=== PATIENT | female | born 1940 | race Two or more races ===

== ENCOUNTER 2023-04-24 08:19 | Emergency (ER) | payer OTHER, MEDICAID ==
[~2023-04-24] VITALS: Ht 162.6 cm; Wt 82.7 kg
[2023-04-24 08:58] LABS: Urine Bacteria FEW /hpf (None Seen); Urine Blood Negative /uL (Negative); Urine Specific Gravity 1.017 (1.001-1.035); Urine WBC 7 /hpf (0 - 5)
[2023-04-24 09:24] LABS: Albumin 3.4 g/dL (3.4-5.0); Basophils # (auto) 0.1 10 ^3/uL (0-0.2); Basophils % (auto) 1.1 % (0.0-2.0); Calcium 8.7 mg/dL (8.5-10.1); Eosinophils # (auto) 0.2 10 ^3/uL (0-0.8); Eosinophils % (auto) 2.4 % (0.0-7.0); Hematocrit 40.1 % (36.0-46.0); Hemoglobin 12.9 g/dL (12.2-16.2); Lymphocytes # (auto) 2.1 10 ^3/uL (0.4-5.4); Lymphocytes % (auto) 22.5 % (10.0-50.0); Mean Corpuscular Hgb Conc. 32.1 g/dL (32.0-36.0); Mean Corpuscular Volume 84.1 fL (80.0-100.0); Monocytes # (auto) 0.6 10 ^3/uL (0-1.3); Monocytes % (auto) 6.4 % (0.0-12.0); Neutrophils # (auto) 6.4 10 ^3/uL (1.6-8.6); Neutrophils % (auto) 67.6 % (37.0-80.0); Nucleated Red Blood Cells % 0.3 %; Potassium 4.4 mmol/L (3.5-5.1); Red Blood Cells 4.77 10^6/uL (4.0-5.20); Red Cell Distribution Width 16.1 % (11.8-14.3); White Blood Cell 9.4 10^3/uL (4.4-10.8)
[2023-04-24 09:28] LABS: BUN/Creatinine Ratio 11.3 (10.0-20.0); Bilirubin, Total 0.3 mg/dL (0.2-1.0); Total Protein 7.8 g/dL (6.4-8.2)
[2023-04-24] MEDS ORDERED: MORPHINE SULFATE INJ 2 MG/ml SYRG IV ONE (09:45)
[2023-04-24] MEDS ORDERED: ONDANSETRON HCL 4 MG/2 ML VIAL IV ONE (09:45)
[2023-04-24 09:46] VITALS: PULSE 72; RESP 18
[2023-04-24] MEDS ORDERED: cefTRIAXone 1GM/50ML D5W 50 ML IV ONE (12:15)
[2023-04-24] MEDS ORDERED: NITR-87 PO (14:25)
[2023-04-24] MEDS ORDERED: CARI250T PO (14:25)
[2023-04-24 15:15] VITALS: BP 146/62; PULSE 68; RESP 19; TEMP 98.6; O2SAT 94
== END 2023-04-24 15:18 | disposition home or self-care (01) ==
LOC: ER 08:19
DX: N28.89 Other specified disorders of kidney and ureter (principal); N39.0 Urinary tract infection, site not specified; I10 Essential (primary) hypertension; E11.9 Type 2 diabetes mellitus without complications; Z79.899 Other long term (current) drug therapy; Z88.8 Allergy status to other drugs, medicaments and biological substances
CPT/HCPCS: 36415; 74176; 80053; 81001; 82962; 85025; 93005; 96365; 96375; 99285; J0696; J2270; J2405

== ENCOUNTER 2024-07-30 13:10 | Inpatient (IN) | payer OTHER, MEDICAID ==
[~2024-07-30] VITALS: Ht 170.2 cm; Wt 85.5 kg
[~2024-07-30 13:10] MED LIST: CARI250T PO; NITR-87 PO
[2024-07-30 14:26] LABS: Basophils # (auto) 0.1 10 ^3/uL (0-0.2); Basophils % (auto) 0.7 % (0.0-2.0); Eosinophils # (auto) 0.2 10 ^3/uL (0-0.8); Eosinophils % (auto) 2.6 % (0.0-7.0); Hematocrit 39.4 % (36.0-46.0); Hemoglobin 12.6 g/dL (12.2-16.2); Lymphocytes # (auto) 2.7 10 ^3/uL (0.4-5.4); Lymphocytes % (auto) 28.4 % (10.0-50.0); Mean Corpuscular Hemoglobin 27.3 pg (28.0-32.0); Mean Corpuscular Hgb Conc. 32.1 g/dL (32.0-36.0); Monocytes # (auto) 0.7 10 ^3/uL (0-1.3); Monocytes % (auto) 7.2 % (0.0-12.0); Neutrophils # (auto) 5.7 10 ^3/uL (1.6-8.6); Neutrophils % (auto) 61.1 % (37.0-80.0); Nucleated Red Blood Cells % 0.1 %; Platelet Count (auto) 432 10^3/uL (140-450); Red Blood Cells 4.63 10^6/uL (4.0-5.20); Red Cell Distribution Width 15.9 % (11.8-14.3); White Blood Cell 9.4 10^3/uL (4.4-10.8)
[2024-07-30] MEDS: HYDROcodone-ACET 5/325MG TAB PO ONE (14:39)
[2024-07-30 14:40] LABS: Chloride 106 mmol/L (98-107); Potassium 4.6 mmol/L (3.5-5.1); Sodium 137 mmol/L (136-145)
[2024-07-30] MEDS: methylPREDNISolone SOD SUCC 125 MG/2 ML VL IM ONE (14:40)
[2024-07-30 14:41] LABS: Anion Gap 8 (5-15); Carbon Dioxide 23 mmol/L (20-31)
[2024-07-30 14:42] LABS: Calcium 10.1 mg/dL (8.7-10.4)
[2024-07-30 14:46] LABS: Glucose 123 mg/dL (74-106)
[2024-07-30 14:47] LABS: BUN/Creatinine Ratio 9.8 (10.0-20.0); Blood Urea Nitrogen 13 mg/dL (9-23)
[2024-07-30 15:03] LABS: Urine Bacteria None Seen /hpf (None Seen)
[2024-07-30 15:24] LABS: Urine Blood Negative /uL (Negative); Urine Clarity Clear (Clear); Urine Color Light-Yellow (Yellow); Urine Protein, UAD Negative (Negative); Urine Urobilinogen Normal (Negative); Urine WBC 1 /hpf (0 - 5)
[2024-07-30 17:15] VITALS: BP 93/68; PULSE 76; RESP 18; TEMP 97.8; O2SAT 94
[2024-07-30] MEDS ORDERED: GLIP10TA9 PO (17:25)
[2024-07-30] MEDS ORDERED: ALEN70TA74 PO (17:25)
[2024-07-30] MEDS ORDERED: MONT-8 PO (17:25)
[2024-07-30] MEDS ORDERED: LOSA-534 PO (17:25)
[2024-07-30] MEDS ORDERED: BUSP10TA31 PO (17:25)
[2024-07-30] MEDS ORDERED: SPIR25TA8 PO (17:25)
[2024-07-30] MEDS ORDERED: DOCU-265 PO (17:25)
[2024-07-30] MEDS ORDERED: ATEN50TA PO (17:25)
[2024-07-30] MEDS ORDERED: SIMV20TA20 PO (17:25)
[2024-07-30] MEDS ORDERED: SEMA1INJ2 SC (17:25)
[2024-07-30] MEDS ORDERED: GABA-339 PO (17:25)
[2024-07-30] MEDS ORDERED: SITA100T7 PO (17:26)
[2024-07-30] MEDS ORDERED: PANT1INJ3 PO (17:27)
[2024-07-30] MEDS ORDERED: DORZ2SOL18 EACHEYE (17:28)
[2024-07-30] MEDS ORDERED: DICY20TA PO (17:29)
[2024-07-30] MEDS ORDERED: ACETAMINOPHEN 325 MG TAB PO PRN (18:45)
[2024-07-30] MEDS ORDERED: NITROGLYCERIN 0.4 MG SL TAB SL PRN (18:45)
[2024-07-30] MEDS ORDERED: ONDANSETRON HCL 4 MG/2 ML VIAL IV PRN (18:45)
[2024-07-30] MEDS ORDERED: HYDROcodone-ACET 5/325MG TAB PO PRN (18:45)
[2024-07-30] MEDS ORDERED: MORPHINE SULFATE INJ 2 MG/ml SYRG IV PRN ×2 (18:45)
[2024-07-30 20:12] VITALS: RESP 16
[2024-07-30] MEDS: hydrALAZINE HCL 20 MG/ML VL IV PRN (21:16)
[2024-07-30 21:40] VITALS: BP 178/65; PULSE 89; RESP 20; TEMP 98.3; O2SAT 93
[2024-07-30] MEDS: ATENOLOL 25 MG TAB PO SCH (22:55)
[2024-07-30] MEDS: SODIUM CHLORIDE 0.9% 1,000 ML IV SCH (22:56)
[2024-07-31] VITALS (7 sets, daily range): BP systolic 112–177; BP diastolic 55–82; PULSE 76–90; RESP 18–20; TEMP 36.8; O2SAT 93–96
[2024-07-31] MEDS: ENOXAPARIN SOD 40 MG/0.4 ML SYRINGE SC SCH (08:49)
[2024-07-31] MEDS: ASPirin 81 mg TAB PO ONE (12:38)
[2024-07-31] MEDS: busPIRone HCL 10 MG TAB PO PRN (12:40)
[2024-07-31] MEDS: cloNIDine HCL 0.1 MG TAB PO PRN (13:07)
[2024-07-31] MEDS ORDERED: METH4PAK PO (15:14)
[2024-08-01] MEDS ORDERED: ASPirin 81 mg TAB PO SCH (10:00)
[2024-08-07] MEDS ORDERED: OZEMPIC 2 MG SCH (12:30)
== END 2024-07-31 18:40 | disposition home health service (06) | DRG 552 ==
LOC: ER 13:10 → TELE 18:45 → TELE-WESTW 21:30
PROVIDERS: ADMIT Internal Medicine; ATTEND Internal Medicine
DX: M48.061 Spinal stenosis, lumbar region without neurogenic claudication (principal); M43.17 Spondylolisthesis, lumbosacral region; M54.16 Radiculopathy, lumbar region; E78.5 Hyperlipidemia, unspecified; N18.32 Chronic kidney disease, stage 3b; E11.22 Type 2 diabetes mellitus with diabetic chronic kidney disease; I12.9 Hypertensive chronic kidney disease with stage 1 through stage 4 chronic kidney disease, or unspecified chronic kidney disease; G89.29 Other chronic pain; M48.02 Spinal stenosis, cervical region; Z79.84 Long term (current) use of oral hypoglycemic drugs; Z87.891 Personal history of nicotine dependence
CPT/HCPCS: 36415; 72131; 72148; 80048; 81001; 85025; 96372; 96374; 97163; G0378

== ENCOUNTER 2025-06-21 17:11 | Emergency (ER) | payer OTHER, MEDICAID ==
[~2025-06-21] VITALS: Ht 162.6 cm; Wt 81.3 kg
[~2025-06-21 17:11] MED LIST changes: +ALEN70TA74 PO; +ATEN50TA PO; +BUSP10TA31 PO; +DICY20TA PO; +DOCU-265 PO; +DORZ2SOL18 EACHEYE; +GABA-339 PO; +GLIP10TA9 PO; +LOSA-534 PO; +METH4PAK PO; +MONT-8 PO; -NITR-87 PO; +PANT1INJ3 PO; +SEMA1INJ2 SC; +SIMV20TA20 PO; +SITA100T7 PO; +SPIR25TA8 PO
[2025-06-21 17:12] VITALS: BP 153/88; PULSE 83; RESP 18; TEMP 98.2; O2SAT 96
[2025-06-21] MEDS ORDERED: OME20T PO (17:40)
--- NOTE | 2025-06-21 17:41 | ED.PDOC ---
GI ASSESSMENT HPI Comments This patient is a pleasant but morbidly obese 84-year-old female who arrives to the ED today with a request for omeprazole prescription refill. Patient states she has a history of gastric related concerns and that her primary care provider utilize the omeprazole. Patient recently had problems ascertain the medications through her pharmacy. Patient denies any fever nausea or vomiting. Vital signs were stable. Chief Complaint: Abdominal Pain Time Seen by MD: 17:16 Primary Care Provider: BELLA Reviewed Notes: Nurses Notes Allergies: Coded Allergies: Fluticasone (Unverified Allergy, Unknown, 03/11/14) Salmeterol (Unverified Allergy, Unknown, 03/11/14) Home Meds Active Scripts Methylprednisolone (Medrol Dosepak) 4 Mg Trell, 4 MG PO UD, #21 TAB UAD Prov:LEILANI ARZOLA MD 07/31/24 Carisoprodol (Soma) 250 Mg Tab, 250 MG PO DAILY for 3 Days, #3 TAB Prov:LUIS LEA MD 04/24/23 Reported Medications Montelukast Sodium (MONTELUKAST SODIUM) 10 Mg Tab, 1 TAB PO DAILY, #30 TAB 5 Refills 07/30/24 Dicyclomine Hcl (Dicyclomine Hcl) 20 Mg Tab, 1 TAB PO TID 07/30/24 Dorzolamide-Timolol (Dorzolamide Hcl/Timolol M) 1 Ml Carlita, 1 DROP EACHEYE BID, #10 ML 6 Refills 07/30/24 Pantoprazole Sodium (PANTOPRAZOLE SODIUM) 40 Mg Inj, 20 MG PO DAILY, INJ 07/30/24 Sitagliptin Phosphate (Januvia) 100 Mg Tab, 1 TAB PO DAILY 07/30/24 Spironolactone (Spironolactone) 25 Mg Tab, 1 TAB PO DAILY 07/30/24 Losartan Potassium (Losartan Potassium) 50 Mg Tab, 1 TAB PO BID 07/30/24 Atenolol (Atenolol) 50 Mg Tab, 1 TAB PO BID 07/30/24 Glipizide (Glipizide) 10 Mg Tab, 1 TAB PO BID 07/30/24 Simvastatin (Simvastatin) 20 Mg Tab, 1 TAB PO 07/30/24 Docusate Sodium (Docusate Sodium) 100 Mg Cap, 1 CAP PO for constipation 07/30/24 Alendronate Sodium (Alendronate Sodium) 70 Mg Tab, 1 TAB PO QWEEKLY 07/30/24 Buspirone HCl (Buspirone HCl) 10 Mg Tab, 1 TAB PO TID PRN for anxiety 07/30/24 Montelukast Sodium (MONTELUKAST SODIUM) 10 Mg Tab, 1 TAB PO DAILY 07/30/24 Semaglutide (Ozempic) 8 Mg/3 Ml Inj, 2 MG SC QWEEKLY 07/30/24 Gabapentin (Gabapentin) 600 Mg Tab, 1 TAB PO TID 07/30/24 Information Source: Patient, Relative (Child) Mode of Arrival: Ambulatory Timing: Months Duration: Since onset Prehospital treatment: Treatment Quality: Aching, Burning Vomitus: None Severity: Moderate Recent: None Recent Hx of: Other (Gastric concerns) Pain Location: Epigastric Modifying Factors: Nothing Associated sign and symptoms: Abdominal Pain Past Medical History PAST MEDICAL HISTORY: DM, HTN Past Medical History (Other): Gastritis Surgical History: Unknown CORE FEEDER History: Denies all CORE FEEDER Hx Family History Family History: Reviewed,noncontributory to illness, Unknown Social History Smoker: Non-Smoker Alcohol: Denies ETOH Use Drugs: Denies Drug Use Lives In: Home Constitutional: denies: chills, diaphoresis, fatigue, fever, malaise, sweats, weakness, others EENTM: denies: blurred vision, double vision, ear bleeding, ear discharge, ear drainage, ear pain, ear ringing, eye pain, eye redness, hearing loss, mouth pain, mouth swelling, nasal discharge, nose bleeding, nose congestion, nose pain, photophobia, tearing, throat pain, throat swelling, voice changes, others Respiratory: denies: cough, hemoptysis, orthopnea, SOB at rest, shortness of breath, SOB with excertion, stridor, wheezing, others Cardiovascular: denies: chest pain, dizzy spells, diaphoresis, Dyspnea on exertion, edema, irregular heart beat, left arm pain, lightheadedness, palpitations, PND, syncope, others Gastrointestinal: reports: abdominal pain; denies: abdomen distended, blood streaked bowels, constipated, diarrhea, dysphagia, difficulty swallowing, hematemesis, melena, nausea, poor appetite, poor fluid intake, rectal bleeding, rectal pain, vomiting, others Genitourinary: denies: abnormal vagina bleeding, burning, dyspareunia, dysuria, flank pain, frequency, hematuria, incontinence, pain, , vagina discharge, urgency, others Neurological: denies: dizziness, fainting, headache, left sided numbness, left sided weakness, numbness, paresthesia, pre-existing deficit, right sided numbness, right sided weakness, seizure, speech problems, tingling, tremors, weakness, others Musculoskeletal: denies: back pain, gout, joint pain, joint swelling, muscle pain, muscle stiffness, neck pain, others Integumetry: denies: bruises, change in color, change in hair/nails, dryness, laceration, lesions, lumps, rash, wounds, others Allergic/Immunocompromised: denies: Difficulty Healing, Frequent Infections, Hives, Itching, others Hematologic/Lymphatic: denies: anemia, blood clots, easy bleeding, easy bruising, swollen glands, others Endocrine: denies: excessive hunger, excessive sweating, excessive thirst, excessive urination, flushing, intolerance to cold, intolerance to heat, unexplained weight gain, unexplained weight loss, others Psychiatric: denies: anxiety, bipolar disorder, depression, hopeless, panic disorder, schizophrenia, sleepless, suicidal, others Physical Exam General Appearance: Moderate Distress ([id number] distress due to abdominal pain concerns.), Obese HEENT: Normal ENT Inspection, Pharynx Normal, TMs Normal Neck: Full Range of Motion, Non-Tender, Normal, Normal Inspection Respiratory: Chest Non-Tender, Lungs Clear, No Accessory Muscle Use, No Respiratory Distress, Normal Breath Sounds Cardiovascular: No Edema, No JVD, No Murmur, No Gallop, Normal Peripheral Pulses, Regular Rate/Rhythm Breast Exam: Deferred Gastrointestinal: Other (Diffuse nonspecific epigastric tenderness to palpation throughout. Difficult to assess due to body habitus. No signs of trauma.) Genitalia: Deferred Pelvic: Deferred Rectal: Deferred Extremities: No calf tenderness, Normal capillary refill, Normal inspection, Normal range of motion, Non-tender, No pedal edema Neurologic: Alert Cerebellar Function: NOT DONE Reflexes: NOT DONE Skin: Dry, Normal Color, Warm Lymphatic: No Adenopathy Was a procedure done? Was a procedure done?: No GI differential Dx Differential Diagnosis: Other (Gastritis, encounter for prescription refill) X-Ray, Labs, Meds, VS Vital Signs Date Time Temp Pulse Resp B/P (MAP) Pulse Ox O2 Delivery O2 Flow Rate FiO2 06/21/25 17:12 98.2 83 18 153/88 96 98.2 X-Ray, Labs, Meds, VS Comment Spent extensive time discussing the patient's request and GI concerns with her. Advised that long term care phlebotomist with a all uses not recommended. Patient needs to discuss her management of belly pain concerns with her it applications manager. Time of 1ST Reevaluation: 17:35 Reevaluation 1ST: Unchanged Consultation: PCP, GI Patient Education/Counseling: Diagnosis, Treatment Family Education/Counseling: Diagnosis, Treatment SEPSIS Sepsis Screen Date sepsis recognized/suspect: Jun 21, 2025 Time Sepsis recognized/suspect: 1712 Recent Procedure: No On Antibiotic Therapy: No Respiratory Rate >20: No Heart Rate >90: No Temp<36 C (96.8 F) or >38.3 C: No SBP <90 or MAP <65 mmHG: No New Acute Mental Status Change: No Is the patient on CPAP, BIPAP,: No Vital Signs Date Time Temp Pulse Resp B/P (MAP) Pulse Ox O2 Delivery O2 Flow Rate FiO2 06/21/25 17:12 98.2 83 18 153/88 96 98.2 Departure 1 Departure Time of Disposition: 17:36 Impression: Primary Impression: Prescription refill Additional Impression: Gastritis Disposition: HOME / SELF CARE / HOMELESS Condition: Stable Additional Instructions: Advise utilizing medication as directed and additionally, patient needs to follow up with the primary care provider and it applications manager for discussions related to management of her long-term gastric concerns. e-Prescriptions Omeprazole (Omeprazole) 20 Mg Cap 20 MG PO DAILY, #30 CAP 1 Refill Prov: KASIA WOODARD PAC 06/21/25 Discharged With: Self, Relative Critical Care Note Critical Care Time?: No Stability Stability form required: No Heart Score Heart Score: Heart Score Response (Comments) Value History N/A 0 EKG N/A 0 Age N/A 0 Risk Factors N/A 0 Troponin N/A 0 Total 0 KASIA WOODARD PAC Jun 21, 2025 17:41
[2025-06-21] MEDS: PANTOPRAZOLE 40 MG TAB PO ONE (17:57)
[2025-06-21] MEDS ORDERED: PANT40TA2 PO (18:05)
== END 2025-06-21 19:15 | disposition home or self-care (01) ==
LOC: ER 17:11
DX: K29.70 Gastritis, unspecified, without bleeding (principal); I10 Essential (primary) hypertension; E11.9 Type 2 diabetes mellitus without complications; Z76.0 Encounter for issue of repeat prescription; Z87.19 Personal history of other diseases of the digestive system; Z79.899 Other long term (current) drug therapy